=== PATIENT | male | born 1975 | race Caucasian/White ===

== ENCOUNTER 2023-04-09 14:32 | Outpatient (CLI) | payer OTHER, MEDICAID, SELFPAY ==
--- NOTE | 2023-04-09 | US_ITS ---
WS: [id number] ULTRASOUND SOFT TISSUES LEFT groin HISTORY: Left Inguinal Hernia COMPARISON: None available. TECHNIQUE: 2-D and color Doppler imaging is submitted. Ultrasound is directed to the LEFT groin. There is a small lymph node which is normal size. Normal fa tty hilum. No herniation of bowel loops. Normal appearance of the soft tissues. US/US pelvic limited [id number] IMPRESSION: Negative ultrasound LEFT groin.
== END 2023-04-09 14:33 | disposition home or self-care (01) ==
LOC: RAD 14:37
PROVIDERS: PCP Family Medicine; Visit Provider Family Medicine
DX: R10.32 Left lower quadrant pain (principal)
CPT/HCPCS: 76857

== ENCOUNTER 2023-04-26 15:45 | Outpatient (CLI) | payer OTHER, MEDICAID, SELFPAY ==
--- NOTE | 2023-04-26 16:08 | CTR_ITS ---
PROCEDURE INFORMATION: Exam: CT Pelvis Without Contrast Exam date and time: 04/26/2023 4:09 PM Age: 47 years old Clinical indication: Other: Groin mass, left; Patient HX: Left side groin red/infection x 2.5 wks TECHNIQUE: Imaging protocol: Computed tomography of the pelvis without contrast. Radiation optimization: All CT scans at this facility use at least one of these dose optimization techniques: automated exposure control; mA and/or kV adjustment per patient size (includes targeted exams where dose is matched to clinical indication); or iterative reconstruction. REPORTING DATA: Count of CT and Cardiac NM exams in prior 12 months: This patient has received 0 known CTs and 0 known cardiac nuclear medicine studies in the 12 months prior to the current study. COMPARISON: pelvic limited [id number] 04/09/2023 3:35 PM RADIATION DOSE METRICS: Total DLP (mGy-cm): 243.04 FINDINGS: Bowel: Sigmoid colonic diverticula are present without evidence of diverticulitis. Appendix: The vermiform appendix is normal. Intraperitoneal space: Unremarkable. No free air. No significant fluid collection. Vasculature: Left pelvic calcified phlebolith. Possible left flowers mortis vessel (series 4, image [id number]). Lymph nodes: Small symmetric bilateral inguinal lymph nodes lymph nodes. These nodes do not meet size criteria for significance. Urinary bladder: Normal. No mass. Reproductive: Normal as visualized. Bones/joints: Bilateral L5 spondylolysis. Soft tissues: A 4.2 x 1.8 x 1.3 cm left indirect inguinal hernia is present containing only intra-abdominal fat. No specific CT evidence of soft tissue infection. No ectopic soft tissue gas. No fluid collection. CT/CT pelvis wo con [id number] IMPRESSION: 1. Left inguinal hernia. 2. Bilateral L5 spondylolysis. 3. Diverticulosis.
== END 2023-04-26 15:46 | disposition home or self-care (01) ==
PROVIDERS: PCP Family Medicine; Visit Provider Family Medicine
DX: R19.09 Other intra-abdominal and pelvic swelling, mass and lump (principal); K40.90 Unilateral inguinal hernia, without obstruction or gangrene, not specified as recurrent; M47.816 Spondylosis without myelopathy or radiculopathy, lumbar region; K57.30 Diverticulosis of large intestine without perforation or abscess without bleeding
CPT/HCPCS: 72192

== ENCOUNTER 2023-05-02 23:35 | Emergency (ER) | payer OTHER, MEDICAID, SELFPAY ==
[2023-05-02 23:43] VITALS: BP 118/79; PULSE 66; RESP 18; TEMP 36.7; O2SAT 99; BMI 24.3
[2023-05-03 00:33] LABS: Basophils # 0.1 10^3/uL (0.0-0.1); Basophils % 0.6 %; Eosinophils # 0.4 10^3/uL (0.0-0.8); Eosinophils % 3.6 %; Hematocrit 42.5 % (42.0-52.0); Hemoglobin 14.1 g/dL (11.7-16.6); Lymphocytes # 3.3 10^3/uL (0.8-4.8); Lymphocytes % 34.1 %; Mean Corpuscular HGB Conc 33.2 g/dL (30.0-36.0); Mean Corpuscular Hemoglobin 29.7 pg (28.0-34.0); Mean Corpuscular Volume 89.7 fl (80-94); Mean Platelet Volume 11.7 fL (7.4-10.4); Monocytes # 0.7 10^3/uL (0.2-0.9); Neutrophils # 5.32 10^3/uL (1.8-7.7); Neutrophils % 54.4 %; Nucleated Red Blood Cells % 0 %; Platelet Count 197 10^3/cmm (130-400); Red Blood Count 4.74 10^6/uL (4.1-5.3); Red Cell Distribution Width 12.8 % (12.1-15.1); White Blood Count 9.8 10^3/uL (4.0-10.0)
[2023-05-03 00:44] LABS: Alanine Aminotransferase 13 U/L (0-41); Albumin Level 4.3 g/dL (3.5-5.2); Alkaline Phosphatase 76 U/L (40-130); Aspartate Amino Transferase 13 U/L (0-40); Blood Urea Nitrogen 13 mg/dL (6-20); Calcium 9.3 mg/dL (8.5-10.5); Carbon Dioxide 25 mmol/L (22-29); Chloride 101 mmol/L (98-107); Globulin 2.2 g/dL (1.3-4.6); Glomerular Filtration Rate 80.1 mL/min (90-130); Glucose 115 mg/dL (65-115); Lipase 24 U/L (13-60); Osmolality Calculated 285 mOsm/kg (285-295); Sodium 137 mmol/L (136-145); Total Bilirubin 0.3 mg/dL (0.15-1.2); Total Protein 6.5 g/dL (6.6-8.7)
[2023-05-03 02:18] VITALS: BP 103/75; PULSE 61; RESP 22; O2SAT 92
--- NOTE | 2023-05-03 02:38 | CTR_ITS ---
PROCEDURE INFORMATION: Exam: CT Abdomen And Pelvis With Contrast Exam date and time: 05/03/2023 3:29 AM Age: 47 years old Clinical indication: Abdominal pain; Localized; Left lower quadrant (llq); Patient HX: C/O llq/groin pain. History of left inguinal hernia. ; Additional info: Left lq pain/inguinal pain HX of inguinal hernia TECHNIQUE: Imaging protocol: Computed tomography of the abdomen and pelvis with contrast. Radiation optimization: All CT scans at this facility use at least one of these dose optimization techniques: automated exposure control; mA and/or kV adjustment per patient size (includes targeted exams where dose is matched to clinical indication); or iterative reconstruction. Contrast material: OMNI 350; Contrast volume: 100 ml; Contrast route: INTRAVENOUS (IV); REPORTING DATA: Count of CT and Cardiac NM exams in prior 12 months: This patient has received [address] and 0 known cardiac nuclear medicine studies in the 12 months prior to the current study. COMPARISON: CT pelvis wo con [id number] 04/26/2023 4:09 PM RADIATION DOSE METRICS: Total DLP (mGy-cm): 625.25 FINDINGS: Lungs: Mild probable atelectasis in the posterior lower lungs. Several small calcified granulomas in the lower lungs. No pleural fluid. Liver: Couple of small low attenuation areas in the right lobe of the liver, larger about 10-11 mm. These are nonspecific, but are statistically most likely small cysts or cavernous hemangiomas. If there is clinical concern for other liver mass, MRI could be more specific. Gallbladder and bile ducts: Several calcified gallstones within the gallbladder. No other definite gallbladder abnormality by CT. No biliary tree dilation. Pancreas: Unremarkable. Spleen: Unremarkable. Adrenal glands: Unremarkable. Kidneys and ureters: No hydronephrosis of either kidney. No visible ureteral calculus. No perinephric fluid. 20 mm simple appearing cyst in the upper left kidney. 10 mm simple appearing cyst in the lower left kidney. Stomach and bowel: Several small bowel loops are fluid-filled, but not abnormally distended. The overall appearance is not suggestive of significant small bowel obstruction at this time. This appearance could be secondary to some form of gastroenteritis. Please correlate clinically. If is clinical suspicion for small bowel obstruction, follow-up may be helpful to exclude progression. No significant bowel distention. There are no CT findings to strongly suggest diverticulitis or colitis. Negative CT does not entirely exclude colitis, so follow-up may be helpful, as clinically directed. Appendix: The appendix is visualized and appears normal. Intraperitoneal space: No free intraperitoneal air, or ascites. Vasculature: No evidence for abdominal aortic aneurysm. Lymph nodes: Several borderline prominent inguinal lymph nodes bilaterally, slightly more prominent on the left, not significantly changed. No significant surrounding inflammatory changes or fluid. No associated soft tissue gas. Urinary bladder: No visible calculus in the urinary bladder. Possibly some mild diffuse urinary bladder wall thickening. However, evaluation is somewhat limited, as the bladder is not well distended. While nonspecific, this could indicate evidence for cystitis. Please correlate clinically. Reproductive: Essentially unremarkable for age. Bones/joints: There is bilateral L5 spondylolysis, no significant/obvious spondylolisthesis. Mild bulging disc at L5-S1, unchanged. Soft tissues: Small left inguinal hernia, containing only fat, not significantly changed. CT/CT abdomen pelvis w con* [id number] IMPRESSION: 1. Several borderline prominent inguinal lymph nodes bilaterally, see additional details above. No significant surrounding inflammatory changes or fluid. 2. Small left inguinal hernia, containing only fat, not significantly changed. 3. No findings to strongly suggest diverticulitis or colitis. 4. Several small bowel loops are fluid-filled, but not abnormally distended, see above discussion. This appearance could be secondary to some form of gastroenteritis. 5. Possible mild urinary bladder wall thickening, see above. 6. Cholelithiasis, see additional details above. 7. Normal appendix. 8. Other findings discussed above. COMMENTS: Consistent with the [employer]'s Incidental Findings Committee white paper (J Am Armando Radiol 2018): Any incidental renal lesion less than 1 cm or classified as too small to characterize, or any incidental cystic renal lesion characterized as simple-appearing, is likely benign. No follow-up imaging is recommended for these lesions per consensus recommendations based on imaging criteria.
[2023-05-03] MEDS: ondansetron 2 mg/ML SDV 2 mL 4 MG IVP (03:03)
[2023-05-03] MEDS: ketorolac 30 mg/mL INJ 15 MG IVP ×2 (03:05→05:00)
[2023-05-03] MEDS: HYDROmorphone 1 mg/mL INJ 1 mL IVP (03:06)
[2023-05-03] MEDS: sodium chloride 0.9% 1,000 ML 999 ML IV (03:17)
[2023-05-03] MEDS: iohexol 350 mg/mL 500 mL Btl (per mL) IV (03:30)
[2023-05-03 04:40] LABS: Add Urine Microscopic? YES; Bilirubin Urine Neg (Negative); Blood Urine Neg (Negative); Glucose Urine UA Norm (Normal); Ketones Urine Negative (Negative); Leukocyte Esterase Urine Trace (Negative); Nitrate Urine Negative (Negative); Protein Urine Neg (Negative); Specific Gravity, Urine 1.015 (1.005-1.030); Urine Appearance Clear (CLEAR); Urine Color Yellow (Yellow); Urobilinogen Urine Norm (Negative); pH Urine 5 (5-7)
[2023-05-03 04:41] LABS: Bacteria Urine TRACE /hpf; Squamous Epithelial Cell Urine 0-4 /hpf (0-5); WBC Urine 0-4 /hpf (0-5)
[2023-05-03 05:05] VITALS: BP 115/63; PULSE 65; RESP 18; O2SAT 96
--- NOTE | 2023-05-04 01:16 | W.ED.ABDPA2 ---
HPI - Abdominal Pain General: Chief Complaint: Abdominal Pain Stated Complaint: hernia Time Seen by Provider: 05/03/23 02:29 Source: patient and family History of Present Illness: 47 year old male with a history of a left inguinal hernia. He presents with left lower quadrant and left groin pain for the past several hours. No fever. He is nauseated. No vomiting. No blood in the stool. No diarrhea. MD elicited complaint: abdominal pain Location: LLQ, Pelvis and Groin Migration to: no migration Exacerbating factors: movement Relieving factors: nothing Associated Symptoms: Reports nausea; Denies diarrhea, dysuria, fever(s), hematuria, melena and vomiting Review of Systems Const: Denies: fever(s) ENMT: Denies: throat pain or ear discharge Card: Denies: chest pain Resp: Denies: dyspnea GI: Reports: nausea; Denies: vomiting, diarrhea or melena : Denies: dysuria or hematuria Course Vital Signs: Vital signs: Vital Signs Temperature 98.1 F 05/02/23 23:43 Pulse Rate 65 05/03/23 05:05 Respiratory Rate 18 05/03/23 05:05 Blood Pressure 115/63 05/03/23 05:05 Pulse Oximetry 96 05/03/23 05:05 Oxygen Delivery Me thod Room Air 05/02/23 23:43 MDM - Abdominal Pain Medical Decision Making CBC is normal period BMP is normal. liver enzymes are not remarkable. Vitals are normal. CT scan is repeated, which shows prominent inguinal lymph nodes bilaterally, and a small left inguinal hernia containing only fat not significantly changed from prior. He'll be prescribed pain medication and anti emetics, and he'll follow up as an outpatient with surgery. to return for worsening symptoms. Lab Data 05/02/23 00:01 05/02/23 00:01 Labs/Radiology: Radiology Impressions Abdomen/Pelvis CT 05/03/23 02:38 IMPRESSION: 1. Several borderline prominent inguinal lymph nodes bilaterally, see additional details above. No significant surrounding inflammatory changes or fluid. 2. Small left inguinal hernia, containing only fat, not significantly changed. 3. No findings to strongly suggest diverticulitis or colitis. 4. Several small bowel loops are fluid-filled, but not abnormally distended, see above discussion. This appearance could be secondary to some form of gastroenteritis. 5. Possible mild urinary bladder wall thickening, see above. 6. Cholelithiasis, see additional details above. 7. Normal appendix. 8. Other findings discussed above. COMMENTS: Consistent with the [employer]'s Incidental Findings Committee white paper (J Am Armando Radiol 2018): Any incidental renal lesion less than 1 cm or classified as too small to characterize, or any incidental cystic renal lesion characterized as simple-appearing, is likely benign. No follow-up imaging is recommended for these lesions per consensus recommendations based on imaging criteria. Laboratory Results WBC 9.8 10^3/uL (4.0-10.0) 05/02/23 00:01 RBC 4.74 10^6/uL (4.1-5.3) 05/02/23 00:01 Hgb 14.1 g/dL (11.7-16.6) 05/02/23 00:01 Hct 42.5 % (42.0-52.0) 05/02/23 00:01 MCV 89.7 fl (80-94) 05/02/23 00:01 MCH 29.7 pg (28.0-34.0) 05/02/23 00:01 MCHC 33.2 g/dL (30.0-36.0) 05/02/23 00:01 RDW 12.8 % (12.1-15.1) 05/02/23 00:01 Plt Count 197 10^3/cmm (130-400) 05/02/23 00:01 MPV 11.7 fL (7.4-10.4) H 05/02/23 00:01 Neut % (Auto) 54.4 % 05/02/23 00:01 Lymph % (Auto) 34.1 % 05/02/23 00:01 [place] % (Auto) 7.0 % 05/02/23 00:01 Eos % (Auto) 3.6 % 05/02/23 00:01 Baso % (Auto) 0.6 % 05/02/23 00:01 Neut # (Auto) 5.32 10^3/uL (1.8-7.7) 05/02/23 00:01 Lymph # (Auto) 3.3 10^3/uL (0.8-4.8) 05/02/23 00:01 [place] # (Auto) 0.7 10^3/uL (0.2-0.9) 05/02/23 00:01 Eos # (Auto) 0.4 10^3/uL (0.0-0.8) 05/02/23 00:01 Baso # (Auto) 0.1 10^3/uL (0.0-0.1) 05/02/23 00:01 Nucleated RBC % (auto) 0 % 05/02/23 00: Nucleated RBCs # 0.0 /100WBC 05/02/23 00:01 Sodium 137 mmol/L (136-145) 05/02/23 00:01 Potassium 4.0 mmol/L (3.5-5.1) 05/02/23 00:01 Chloride 101 mmol/L (98-107) 05/02/23 00:01 Carbon Dioxide 25 mmol/L (22-29) 05/02/23 00:01 Anion Gap 15.0 (5-19) 05/02/23 00:01 BUN 13 mg/dL (6-20) 05/02/23 00:01 Creatinine 1.0 mg/dL (0.7-1.2) 05/02/23 00:01 GFR Calculation 80.1 mL/min (90-130) L 05/02/23 00:01 Glucose 115 mg/dL (65-115) 05/02/23 00:01 Calculated Osmolality 285 mOsm/kg (285-295) 05/02/23 00:01 Calcium 9.3 mg/dL (8.5-10.5) 05/02/23 00:01 Total Bilirubin 0.3 mg/dL (0.15-1.2) 05/02/23 00:01 AST 13 U/L (0-40) 05/02/23 00:01 ALT 13 U/L (0-41) 05/02/23 00:01 Alkaline Phosphatase 76 U/L (40-130) 05/02/23 00:01 Total Protein 6.5 g/dL (6.6-8.7) L 05/02/23 00:01 Albumin 4.3 g/dL (3.5-5.2) 05/02/23 00:01 Globulin 2.2 g/dL (1.3-4.6) 05/02/23 00:01 Lipase 24 U/L (13-60) 05/02/23 00:01 Urine Color Yellow (Yellow) 05/03/23 02:45 Urine Appearance Clear (CLEAR) 05/03/23 02:45 Urine pH 5 (5-7) 05/03/23 02:45 Ur Specific [place] 1.015 (1.005-1.030) 05/03/23 02:45 Urine Protein Neg (Negative) 05/03/23 02:45 Urine Glucose (UA) Norm (Normal) 05/03/23 02:45 Urine Ketones Negative (Negative) 05/03/23 02:45 Urine Blood Neg (Negative) 05/03/23 02:45 Urine Nitrate Negative (Negative) 05/03/23 02:45 Urine Bilirubin Neg (Negative) 05/03/23 02:45 Urine Urobilinogen Norm mg/dL (Negative) 05/03/23 02:45 Ur Leukocyte Esterase Trace (Negative) H 05/03/23 02:45 Urine RBC None /hpf (0-2) 05/03/23 02:45 Urine WBC 0-4 /hpf (0-5) H 05/03/23 02:45 Ur Squamous Epith Cells 0-4 /hpf (0-5) H 05/03/23 02:45 Amorphous Sediment Not Reportable 05/03/23 02:45 Urine Bacteria Trace /hpf (NONE) 05/03/23 02:45 Discharge Plan Discharge Patient Disposition: Home Clinical Impression: Abdominal pain, Inguinal hernia Condition: Stable Prescriptions: New hydrocodone-acetaminophen 5-325 mg tablet 1 tab PO Q8H PRN (Reason: pain) Qty: 7 0RF ondansetron 4 mg film 4 mg PO DAILY PRN (Reason: nausea and vomiting) Qty: 10 0RF ketorolac 10 mg tablet 10 mg PO TID PRN (Reason: pain) Qty: 10 0RF Discharge Orders: Discharge ED (Routine); Ordered 05/03/23 Ordered By: Oleg Major Referrals: Gildardo Pugh DO [Physician] - 4-7 days Larry Benjamin MD [Primary Care Provider] - Patient Instructions: Inguinal Hernia (ED), Abdominal Pain (ED), Opioid Safety, Pain Management Activity Restrictions/Additional Instructions: Call your doctor later this morning for a follow-up appointment. Surgeries number was also listed, for a follow-up with them as well. Alternate pain medication for significant pain. Ice to the area can help as well. Return for fever greater than 100, vomiting liquids or medications, other concerning symptoms. Stand Alone Forms: Work/School Release Coding Level of Care Code ED [employer] for Paul Alvarez
== END 2023-05-03 05:03 | disposition home or self-care (01) ==
PROVIDERS: Emergency Provider Emergency Medicine; PCP Family Medicine
DX: K40.90 Unilateral inguinal hernia, without obstruction or gangrene, not specified as recurrent (principal)
CPT/HCPCS: 36415; 74177; 80053; 81001; 83690; 85025; 96361; 96374; 96375; 96376; 99285; J1170; J1885; J2405; J7030; Q9967

== ENCOUNTER 2023-05-07 13:45 | Emergency (ER) | payer OTHER, SELFPAY ==
[2023-05-07 13:49] VITALS: BP 103/67; PULSE 71; RESP 16; TEMP 36.7; O2SAT 98; BMI 24.2
[2023-05-07 14:08] LABS: Basophils # 0.1 10^3/uL (0.0-0.1); Basophils % 0.7 %; Eosinophils # 0.2 10^3/uL (0.0-0.8); Hematocrit 45.9 % (42.0-52.0); Hemoglobin 15.2 g/dL (11.7-16.6); Lymphocytes # 2.2 10^3/uL (0.8-4.8); Lymphocytes % 29.7 %; Mean Corpuscular HGB Conc 33.1 g/dL (30.0-36.0); Mean Corpuscular Hemoglobin 29.4 pg (28.0-34.0); Mean Corpuscular Volume 88.8 fl (80-94); Monocytes # 0.5 10^3/uL (0.2-0.9); Monocytes % 6.6 %; Neutrophils # 4.46 10^3/uL (1.8-7.7); Neutrophils % 59.9 %; Nucleated Red Blood Cells % 0 %; Platelet Count 180 10^3/cmm (130-400); Red Blood Count 5.17 10^6/uL (4.1-5.3); Red Cell Distribution Width 12.9 % (12.1-15.1); White Blood Count 7.4 10^3/uL (4.0-10.0)
[2023-05-07 14:28] LABS: Alanine Aminotransferase 12 U/L (0-41); Albumin Level 4.4 g/dL (3.5-5.2); Alkaline Phosphatase 77 U/L (40-130); Anion Gap 16.3 (5-19); Aspartate Amino Transferase 12 U/L (0-40); Blood Urea Nitrogen 13 mg/dL (6-20); Calcium 9.1 mg/dL (8.5-10.5); Carbon Dioxide 23 mmol/L (22-29); Chloride 100 mmol/L (98-107); Globulin 2.3 g/dL (1.3-4.6); Glomerular Filtration Rate 80.1 mL/min (90-130); Glucose 91 mg/dL (65-115); Lipase 19 U/L (13-60); Osmolality Calculated 280 mOsm/kg (285-295); Potassium 4.3 mmol/L (3.5-5.1); Sodium 135 mmol/L (136-145); Total Bilirubin 0.3 mg/dL (0.15-1.2); Total Protein 6.7 g/dL (6.6-8.7)
--- NOTE | 2023-05-07 15:13 | CTR_ITS ---
PROCEDURE INFORMATION: Exam: CT Abdomen And Pelvis With Contrast Exam date and time: 05/07/2023 3:35 PM Age: 47 years old Clinical indication: Abdominal pain; Localized; Left lower quadrant (llq); Additional info: Abdominal pain llq, inguinal hernia TECHNIQUE: Imaging protocol: Computed tomography of the abdomen and pelvis with contrast. Axial, coronal and sagittal reformatted images were created and reviewed. Radiation optimization: All CT scans at this facility use at least one of these dose optimization techniques: automated exposure control; mA and/or kV adjustment per patient size (includes targeted exams where dose is matched to clinical indication); or iterative reconstruction. Contrast material: OMNI 350; Contrast volume: 100 ml; Contrast route: INTRAVENOUS (IV); REPORTING DATA: Count of CT and Cardiac NM exams in prior 12 months: This patient has received 2 known CTs and 0 known cardiac nuclear medicine studies in the 12 months prior to the current study. COMPARISON: CT abdomen pelvis w con* [id number] 05/03/2023 3:29 AM RADIATION DOSE METRICS: Total DLP (mGy-cm): 630.33 FINDINGS: Lungs: Dependent linear stranding and groundglass, likely due to atelectasis. Bibasilar calcified granulomata. Pleural spaces: Small pleural effusions. Liver: 1.1 cm cyst in the right hepatic lobe (no follow-up is indicated based on the imaging appearance). Indeterminate low-density lesions in the right hepatic lobe, measuring up to 9 mm, similar to prior. Gallbladder and bile ducts: Cholelithiasis. Pancreas: Unremarkable. Spleen: Unremarkable. Adrenal glands: Normal. No mass. Kidneys and ureters: Left renal cysts, measuring up to 2.2 cm (no follow-up is indicated based on the imaging appearance). No radiodense calculi. No hydronephrosis. Stomach and bowel: Scattered colonic diverticula without evidence of diverticulitis. No obstruction. No bowel wall thickening. No pneumatosis. Appendix: Normal. Intraperitoneal space: No free fluid. No organized fluid collection. No free air. Vasculature: Minimal atherosclerotic disease. No aneurysm or dissection. Lymph nodes: Small mesenteric lymph nodes, nonspecific in appearance. No pathologically enlarged lymph nodes. Urinary bladder: Unremarkable as visualized. Reproductive: Unremarkable. Bones/joints: No acute osseous abnormality. Mild degenerative changes. Bilateral L5 pars defects. Soft tissues: Small, fat containing left inguinal hernia. CT/CT abdomen pelvis w con* [id number]: 1[address] No CT evidence of acute intra-abdominal or pelvic pathology. 2. Additional findings, as above. COMMENTS: Consistent with the [employer]'s Incidental Findings Committee white paper (J Am Armando Radiol 2018): Any incidental renal lesion less than 1 cm or classified as too small to characterize, or any incidental cystic renal lesion characterized as simple-appearing, is likely benign. No follow-up imaging is recommended for these lesions per consensus recommendations based on imaging criteria.
--- NOTE | 2023-05-07 15:15 | W.ED.ABDPA2 ---
HPI - Abdominal Pain General: Chief Complaint: Abdominal Pain Stated Complaint: abd pain Time Seen by Provider: 05/07/23 13:59 History of Present Illness: Patient is a 47-year-old male who comes to the ED with abdominal pain. Patient was seen here in the ED for same complaint approximately 3 days ago on May 04. Patient states he was diagnosed with a left inguinal hernia and has an appointment with general surgery at the end of April. Patient states that since he was discharged from the ED 3 days ago his abdominal pain is gotten worse. He is having worsening left lower quadrant abdominal pain that he rates a 9 out of 10. Pain is also in his left groin region where inguinal hernia is located. He endorses some pain in left lower quadrant of abdomen and left groin when trying to urinate. Associated Symptoms: Reports dysuria; Denies chills, constipation, diarrhea, fever(s), hematochezia, hematuria, nausea and vomiting Review of Systems Const: Denies: fever(s), chills or fatigue Eyes: Denies: change in vision or eye discomfort ENMT: Denies: throat pain, odynophagia, nasal discharge or nasal congestion Card: Denies: chest pain, palpitations, edema, swelling of feet/ankles, dyspnea on exertion or orthopnea Resp: Denies: dyspnea, productive cough or non-productive cough GI: Reports: abdominal pain; Denies: nausea, vomiting, diarrhea, constipation or hematochezia : Reports: dysuria; Denies: flank pain, difficulty urinating or hematuria Musc: Denies: neck pain, back pain or extremity swelling Skin/Breast: Denies: rash or new lesions Neuro: Denies: headache(s), numbness in extremities or weakness in extremities PFS ED PFSH: Medical History (Updated 05/07/23 @ 16:26 by BORA Christian) No pertinent family history Surgical History (Updated 05/07/23 @ 16:26 by BORA Christian) No pertinent past surgical history Physical Exam Const: COMMON NORMALS: no acute distress, patient oriented x3 and alert HENMT: COMMON NORMALS: normocephalic HEAD & SCALP: normocephalic MOUTH: Normal oral and palatal mucosa present THROAT: posterior oropharynx normal and uvula midline Neck/C-Spine: COMMON NORMALS: supple GENERAL: Yes normal visual inspection Resp: COMMON NORMALS: normal respiratory effort, No retractions, No use of accessory muscles and clear to auscultation bilaterally AUSCULTATION: clear to auscultation bilaterally Cardio: COMMON NORMALS: regular rate, regular rhythm, S1 normal heart sound present, S2 normal heart sound present, No gallops present (Cardio), No clicks present (Cardio), No murmurs present (Cardio) and Peripheral pulses 2+ throughout RATE: regular rate RHYTHM: regular rhythm HEART SOUNDS: S1 normal heart sound present and S2 normal heart sound present PERIPHERAL PULSES: Peripheral pulses 2+ throughout GI: COMMON NORMALS: Normal to inspection, nondistended, normoactive bowel sounds present, Soft to palpation and no masses PALPATION: Yes Soft to palpation, Yes Tenderness to palpation present (GI) Details: LLQ and Yes Hernia present (Very small left inguinal hernia) : COMMON NORMALS: Yes no CVA tenderness BLADDER/KIDNEY EXAM: Yes no CVA tenderness Back/Pelvis: COMMON NORMALS: no CVA tenderness Extremity: COMMON NORMALS: normal to inspection Neuro: COMMON NORMALS: patient oriented x3 SENSORIUM/ORIENTATION: Yes alert GAIT: Yes Normal gait present Skin: GENERAL SKIN EXAM: dry skin Course Vital Signs: Vital signs: Vital Signs Temperature 98.1 F 05/07/23 13:49 Pulse Rate 71 05/07/23 13:49 Respiratory Rate 16 05/07/23 15:18 Blood Pressure 103/67 05/07/23 13:49 Pulse Oximetry 97 05/07/23 15:18 Oxygen Delivery Me thod Room Air 05/07/23 13:49 MDM - Abdominal Pain Medical Decision Making Patient is a 47-year-old male who comes to the ED with abdominal pain. Patient was seen here in the ED for same complaint approximately 3 days ago on May 04. Patient states he was diagnosed with a left inguinal hernia and has an appointment with general surgery at the end of April. Patient states that since he was discharged from the ED 3 days ago his abdominal pain is gotten worse. He is having worsening left lower quadrant abdominal pain that he rates a 9 out of 10. Pain is also in his left groin region where inguinal hernia is located. He endorses some pain in left lower quadrant of abdomen and left groin when trying to urinate. Vitals are stable. Labs are all unremarkable. UA was unremarkable. CT of abdomen pelvis shows no acute intra-abdominal or pelvic findings. It did note a very small fat-containing left inguinal hernia. Patient was given IV fluids, morphine and Toradol here in the ED. He was stable for discharge home and told to follow-up with general surgeon at scheduled appointment. He was sent home with a prescription for hydrocodone to help with pain. Return to ED precautions given. Patient understood and agreed with plan. Lab Data I reviewed the patient's lab results. 05/07/23 14:03 05/07/23 14:03 Labs/Radiology: Radiology Impressions Abdomen/Pelvis CT 05/07/23 15:[address]: 1[address] No [address] evidence of acute intra-abdominal or pelvic pathology. 2. Additional findings, as above. COMMENTS: Consistent with the [employer]'s Incidental Findings Committee white paper (J Am Armando Radiol 2018): Any incidental renal lesion less than 1 cm or classified as too small to characterize, or any incidental cystic renal lesion characterized as simple-appearing, is likely benign. No follow-up imaging is recommended for these lesions per consensus recommendations based on imaging criteria. Laboratory Results WBC 7.4 10^3/uL (4.0-10.0) 05/07/23 14:03 RBC 5.17 10^6/uL (4.1-5.3) 05/07/23 14:03 Hgb 15.2 g/dL (11.7-16.6) 05/07/23 14:03 Hct 45.9 % (42.0-52.0) 05/07/23 14:03 MCV 88.8 fl (80-94) 05/07/23 14:03 MCH 29.4 pg (28.0-34.0) 05/07/23 14:03 MCHC 33.1 g/dL (30.0-36.0) 05/07/23 14:03 RDW 12.9 % (12.1-15.1) 05/07/23 14:03 Plt Count 180 10^3/cmm (130-400) 05/07/23 14:03 MPV 11.0 fL (7.4-10.4) H 05/07/23 14:03 Neut % (Auto) 59.9 % 05/07/23 14:03 Lymph % (Auto) 29.7 % 05/07/23 14:03 [place] % (Auto) 6.6 % 05/07/23 14:03 Eos % (Auto) 3.0 % 05/07/23 14:03 Baso % (Auto) 0.7 % 05/07/23 14:03 Neut # (Auto) 4.46 10^3/uL (1.8-7.7) 05/07/23 14:03 Lymph # (Auto) 2.2 10^3/uL (0.8-4.8) 05/07/23 14:03 [place] # (Auto) 0.5 10^3/uL (0.2-0.9) 05/07/23 14:03 Eos # (Auto) 0.2 10^3/uL (0.0-0.8) 05/07/23 14:03 Baso # (Auto) 0.1 10^3/uL (0.0-0.1) 05/07/23 14:03 Nucleated RBC % (auto) 0 % 05/07/23 14:03 Nucleated RBCs # 0.0 /100WBC 05/07/23 14:03 Sodium 135 mmol/L (136-145) L 05/07/23 14:03 Potassium 4.3 mmol/L (3.5-5.1) 05/07/23 14:03 Chloride 100 mmol/L (98-107) 05/07/23 14:03 Carbon Dioxide 23 mmol/L (22-29) 05/07/23 14:03 Anion Gap 16.3 (5-19) 05/07/23 14:03 BUN 13 mg/dL (6-20) 05/07/23 14:03 Creatinine 1.0 mg/dL (0.7-1.2) 05/07/23 14:03 GFR Calculation 80.1 mL/min (90-130) L 05/07/23 14:03 Glucose 91 mg/dL (65-115) 05/07/23 14:03 Calculated Osmolality 280 mOsm/kg (285-295) L 05/07/23 14:03 Calcium 9.1 mg/dL (8.5-10.5) 05/07/23 14:03 Total Bilirubin 0.3 mg/dL (0.15-1.2) 05/07/23 14:03 AST 12 U/L (0-40) 05/07/23 14:03 ALT 12 U/L (0-41) 05/07/23 14:03 Alkaline Phosphatase 77 U/L (40-130) 05/07/23 14:03 Total Protein 6.7 g/dL (6.6-8.7) 05/07/23 14:03 Albumin 4.4 g/dL (3.5-5.2) 05/07/23 14:03 Globulin 2.3 g/dL (1.3-4.6) 05/07/23 14:03 Lipase 19 U/L (13-60) 05/07/23 14:03 Urine Color Yellow (Yellow) 05/07/23 15:15 Urine Appearance Clear (CLEAR) 05/07/23 15:15 Urine pH 5 (5-7) 05/07/23 15:15 Ur Specific [place] 1.020 (1.005-1.030) 05/07/23 15:15 Urine Protein Neg (Negative) 05/07/23 15:15 Urine Glucose (UA) Norm (Normal) 05/07/23 15:15 Urine Ketones Negative (Negative) 05/07/23 15:15 Urine Blood Neg (Negative) 05/07/23 15:15 Urine Nitrate Negative (Negative) 05/07/23 15:15 Urine Bilirubin Neg (Negative) 05/07/23 15:15 Urine Urobilinogen Norm mg/dL (Negative) 05/07/23 15:15 Ur Leukocyte Esterase Negative (Negative) 05/07/23 15:15 Discharge Plan Discharge Patient Disposition: Home Clinical Impression: Abdominal pain Qualifiers: Abdominal location: left lower quadrant Qualified Code(s): R10.32 - Left lower quadrant pain Inguinal hernia Qualifiers: Obstruction and gangrene presence: without obstruction or gangrene Laterality: unilateral Recurrence: not specified as recurrent Qualified Code(s): K40.90 - Unilateral inguinal hernia, without obstruction or gangrene, not specified as recurrent Condition: Stable Prescriptions: No Action hydrocodone-acetaminophen 5-325 mg tablet 1 tab PO Q8H PRN (Reason: pain) Qty: 7 0RF ketorolac 10 mg tablet 10 mg PO TID PRN (Reason: pain) Qty: 10 0RF Rx Instructions: not started taking yet waiting on pa per pts clindamycin HCl 300 mg capsule 300 mg PO TID Rx Instructions: for 7 days (rx filled 04/29/23) azelastine 137 mcg (0.1 %) aerosol,spray 2 spray INTRANASAL BID PRN (Reason: Allergy Symptoms) ondansetron 4 mg tablet,disintegrating 4 mg PO DAILY PRN (Reason: Nausea And Vomiting) levocetirizine 5 mg tablet 5 mg PO DAILY PRN (Reason: Allergy Symptoms) Adult Multivitamin Gummies 200 mcg Tablet,Chewable 1 tab PO DAILY Discharge Orders: Discharge ED (Routine); Ordered 05/07/23 Ordered By: Jovan Myles Referrals: Larry Benjamin MD [Primary Care Provider] - Discharge Diet: Regular Discharge Activity: Increase activity as tolerated Patient Instructions: Abdominal Pain (ED), Opioid Safety Activity Restrictions/Additional Instructions: Follow-up with general surgeon at your scheduled appointment. Take medications as prescribed. Return to the ER or your medical provider if condition worsens. Please read and understand discharge instructions. Thank you for choosing [facility] for your healthcare needs today. Please realize this is an emergency room and that we are providing you with a medical screening exam and this may not be complete and all inclusive of all the testing and or work up that you may need to determine your ailment or severity of your illness. It is very important that you follow up as instructed or that you return to the Emergency Department should you have concerns or if your condition changes or worsens in any way. Coding Level of Care Code ED [place] Worker for Paul Alvarez
[2023-05-07 15:18] VITALS: RESP 16; O2SAT 97
[2023-05-07] MEDS: morphine 4 mg/mL SDV 1 mL IVP (15:18)
[2023-05-07] MEDS: ondansetron 2 mg/ML SDV 2 mL 4 MG IVP (15:18)
[2023-05-07 15:28] LABS: Add Urine Microscopic? NO; Charge for UA Resulting for Rev
[2023-05-07] MEDS: iohexol 350 mg/mL 500 mL Btl (per mL) IV (15:32)
--- NOTE | 2023-05-07 15:36 | PC.PHAR ---
pt and pts verified pts medications-pts states the pt hasnt started taking ketorolac 10mg tid prn rx written 05/03/23 pts states they are waiting on a pa to be covered by pts insurance-pt states he is still taking his clindamycin 300mg tid filled 04/29/23 7d/s- pt states the rajendra glover work notes are made in the pharmacy comments
[2023-05-07 15:41] LABS: Bilirubin Urine Neg (Negative); Blood Urine Neg (Negative); Glucose Urine UA Norm (Normal); Ketones Urine Negative (Negative); Leukocyte Esterase Urine Negative (Negative); Nitrate Urine Negative (Negative); Protein Urine Neg (Negative); Urine Appearance Clear (CLEAR); Urine Color Yellow (Yellow); Urobilinogen Urine Norm (Negative); pH Urine 5 (5-7)
[2023-05-07] MEDS: ketorolac 30 mg/mL INJ IVP (16:40)
== END 2023-05-07 17:03 | disposition home or self-care (01) ==
PROVIDERS: Emergency Provider Physician Assistant; PCP Family Medicine
DX: K40.90 Unilateral inguinal hernia, without obstruction or gangrene, not specified as recurrent (principal)
CPT/HCPCS: 36415; 74177; 80053; 81003; 83690; 85025; 96374; 96375; 99285; J1885; J2270; J2405; Q9967

== ENCOUNTER → 2023-05-19 14:05 | Outpatient (BNVA) | payer OTHER, MEDICAID, SELFPAY | PROVIDERS: PCP Family Medicine; Visit Provider Internal Medicine | DX: Z01.810 Encounter for preprocedural cardiovascular examination (principal) | CPT/HCPCS: 93005 ==

== ENCOUNTER 2023-05-26 09:01 | Day surgery (SDC) | payer OTHER, SELFPAY ==
[2023-05-25 12:14] VITALS: BMI 24.3
[2023-05-26] VITALS (20 sets, daily range): BP systolic 90–125; BP diastolic 46–104; PULSE 60–83; RESP 14–18; TEMP 36.1–36.5; O2SAT 90–98
[2023-05-26] MEDS: sodium chloride 0.9% 1,000 ML 30 ML IV (09:26)
[2023-05-26] MEDS: scopolamine 1.5 Patch 1 PATCH TRANSDERMA (09:29)
--- NOTE | 2023-05-26 09:32 | ANES.PREANE2 ---
Pre-Anesthetic Assessment Height/Weight: Height 1.91 m Weight 88.451 kg Temp Pulse Resp BP Pulse Ox O2 Del Method 97.7 F 78 16 120/81 95 Room Air 05/26/23 09:06 05/26/23 09:06 05/26/23 09:06 05/26/23 09:06 05/26/23 09:06 05/26/23 09:15 Operation Date: 05/26/23 10:40 Proposed Procedures p 41849 OPEN LEFT INGUINAL HERNIA WITH MESH K40.90(Left) - Adeel Richardson MD Familial anesthetic complications: None Was Beta Daphnie taken within 24 hours: N/A Was Clonidine taken within 24 hours: N/A Last intake: Intake Last Liquid Date 05/25/23 Last Liquid Time 23:30 Last Solid Date 06/01/23 Last Solid Time 18:30 Social Tobacco and No alcohol Exam alert, oriented x 3, clear to auscultation bilaterally and regular rate & rhythm Airway Mallampati: Class I Dentition: other (missing) Anesthetic Plan ASA status: 1 Anesthesia: General Risk of > 500 ml blood loss (7ml/kg in children): No Medications/Allergies Home Medications Medication Instructions Recorded Confirmed Last Taken Type hydrocodone 5 mg-acetaminophen 325 1 tab PO Q8H PRN pain #7 tabs 05/03/23 05/25/23 05/25/23 Rx mg tablet ketorolac 10 mg tablet 10 mg PO TID PRN pain #10 tabs 05/03/23 05/25/23 05/12/23 Rx azelastine 137 mcg (0.1 %) nasal 2 spray intranasal BID PRN Allergy 05/07/23 05/25/23 05/25/23 History spray aerosol Symptoms levocetirizine 5 mg tablet 5 mg PO DAILY PRN Allergy Symptoms 05/07/23 05/25/23 05/25/23 History multivitamin with minerals-folic 1 tab PO DAILY 05/07/23 05/25/23 05/25/23 History acid 200 mcg chewable tablet (Adult Multivitamin Gummies) ondansetron 8 mg disintegrating 8 mg PO Q8H PRN nausea and 05/14/23 05/25/23 05/25/23 Rx tablet vomiting #20 tabs Allergies Allergy/AdvReac Type Severity Reaction Status Date / Time lorazepam [From Ativan] Allergy ADR-Agitate Verified 05/26/23 09:11 d Current Medications Generic Name Dose Route Start Last Admin Trade Name Freq PRN Reason Stop Dose Admin Sodium Chloride 1,000 mls @ 30 mls/hr 05/26/23 09:15 05/26/23 09:26 Sodium Chloride 0.9% IV 05/27/23 09:14 30 mls/hr .Q24H KLAUDIA Administration PFSH Anesthesia Medical History (Updated 05/14/23 @ 14:31 by Adeel Richardson MD) No pertinent family history Surgical History (Updated 05/07/23 @ 16:26 by BORA Christian) No pertinent past surgical history Data Anesthesia Cardiac Studies: No Data to Display
[2023-05-26] MEDS: fentaNYL 50 mcg/mL INJ 2mL IVP ×2 (10:01→12:58)
--- NOTE | 2023-05-26 10:31 | W.PM.OPSUD ---
Surgery/Procedure H&P Update DATE OF PROCEDURE: May 26, 2023 DATE H&P PERFORMED: 05/14/23 CHANGES TO PREVIOUS DOCUMENTATION: I examined patient today, no changes from last H&P. procedure still indicated for left inguinal hernia PRIMARY INDICATION FOR PROCEDURE: left inguinal hernia PLANNED PROCEDURE: Operation Date: 05/26/23 10:40 Proposed Procedures p 95111 OPEN LEFT INGUINAL HERNIA WITH MESH K40.90(Left) - Adeel Richardson MD
[2023-05-26] MEDS: ceFAZolin 2,000 MG in sodium chloride 0.9% (plus) 50 ML 100 MG IV (10:42)
[2023-05-26] MEDS: BUPivacaine 0.25% INJ 10 mL INJECTION (12:02)
[2023-05-26] MEDS: lidocaine-epi 1% 20 mL INJ 10 ML INJECTION (12:03)
[2023-05-26] MEDS: oxyCODONE-APAP 5-325 mg Tablet 1 TAB PO (13:32)
[2023-05-26] MEDS: morphine 4 mg/mL SDV 1 mL IVP (13:33)
--- NOTE | 2023-05-26 13:45 | ANE.PACU2 ---
Inpatient post-anesthesia follow up: Airway intact: Yes Vital signs: Temperature 97.5 F Pulse Rate 63 Respiratory Rate 16 Blood Pressure 125/80 Pulse Oximetry 97 Oxygen Delivery Me thod Room Air Oxygen Flow Rate 2 Fraction of Inspir ed Oxygen Hydration adequate: Yes Nausea and vomiting: No Pain level: 1 Mental status: Baseline
--- NOTE | 2023-05-26 15:40 | P.OP_ITS ---
Operative Report Date of procedure: May 26, 2023 Pre-op diagnosis: Left inguinal hernia Post-op diagnosis: Left inguinal hernia Post-op findings: There is a left inguinal hernia without indirect sac, there was a cord lipoma. There was weakness of the posterior wall of the left inguinal canal, with bulging of preperitoneal fat. Procedure done: Open left inguinal hernia repair with mesh Implants: Polypropylene mesh Specimens removed/disposition: Cord lipoma to pathology Surgeon: Adeel Richardson MD Estimated blood loss: 10cc Complications: None Findings: There is a left inguinal hernia without indirect sac, there was a cord lipoma. There was weakness of the posterior wall of the left inguinal canal, with bulging of preperitoneal fat. Left ilioinguinal and iliohypogastric nerves identified and preserved. Brief History: This a 47-year-old male who was evaluated in my clinic for a left inguinal hernia. Per patient report he felt a sudden pain after lifting heavy boxes, and he noticed bulging on the left inguinal region. Since that the moment patient has been complaining of severe pain on the left groin and physical examination was consistent with a left inguinal hernia. Patient was scheduled for an open left inguinal hernia repair with mesh after all the reason benefits of the procedure were explained as documented on my clinic visit and consent was obtained. Procedure: The patient was taken to the OR. Placed in the supine position. General esthesia was given. The left groin was prepped and draped in the usual sterile fashion. A timeout was conducted. 5 cm incision was made in the left groin, the incision was carried down to the level of the external oblique aponeurosis. I then opened the external oblique aponeurosis from the area overlying the internal ring to the external ring. The ilioinguinal nerve was identified and preserved. Careful blunt dissection was used to separate the cord from the inguinal canal. The spermatic cord was then encircled and a Rothschild drain. The floor of the inguinal canal was noted to be weakened, bulging of the preperitoneal fat was noted at this level. I then proceeded to open the cremaster muscle and carefully dissected the spermatic cord. A cord lipoma was identified, was dissected and excised. I also identified a small indirect hernia sac. The sac was dissected all the way down to the level of the internal inguinal ring, I then reduced the sac to the abdominal cavity. Subsequently I proceeded to plicate the floor of the inguinal canal by approximating the transversalis muscle to the inguinal ligament using #2-0 Prolene. A polypropylene mesh was then laid on the floor of the canal, the tails of the mesh were used to encircle the spermatic cord recreating the internal ring. The mesh was then fixed with 2-0 Prolene to the pubic tubercle and shelving edge of the inguinal ligament. I then used 2-0 Vicryl to secure the mesh to the conjoined tendon. The tail of the mesh were fixed together with #2-0 Prolene. The spermatic cord was then returned to an anatomic position, the external oblique aponeurosis was closed using #2-0 Vicryl. The wound was closed in layers using #3-0 Vicryl for Helen's and subcutaneous tissue #4-0 Monocryl for the skin. Dermabond was applied. The patient tolerated the procedure well, was extubated and transferred to the PACU in stable condition.
== END 2023-05-26 14:24 | disposition home or self-care (01) ==
PROVIDERS: PCP Family Medicine; Visit Provider Surgery
PROC: (CPT 49505; principal; 2023-05-26 10:20)
DX: K40.90 Unilateral inguinal hernia, without obstruction or gangrene, not specified as recurrent (principal); D17.6 Benign lipomatous neoplasm of spermatic cord; Z79.899 Other long term (current) drug therapy
CPT/HCPCS: 49505; 88304; C1781; J0690; J1100; J1170; J2250; J2270; J2405; J2704; J3010; J3490; J7030

== ENCOUNTER 2023-10-04 14:17 | Outpatient (CLI) | payer OTHER, SELFPAY ==
--- NOTE | 2023-10-04 14:30 | MR_ITS ---
WS: [id number] MRI PELVIS WITHOUT CONTRAST. COMPARISON: CT 05/07/2023 Multiplanar, multisequence imaging is performed without contrast. History: Constant pain in LEFT hip and groin. Hernia surgery May 2023. Symmetric appearance of the soft tissues and muscles of the pelvis. No signal abnormality within the soft tissues. No marrow edema or fracture. No adenopathy or ascites. There are no suspicious findings in the LEFT inguinal region. No fluid collection or abscess. No adenopathy. There is a very small hy drocele. No joint effusion at the hips. IMPRESSION: Negative pelvis. No adenopathy or abnormal findings at the LEFT groin.
== END 2023-10-04 14:18 | disposition home or self-care (01) ==
LOC: RAD 14:17
PROVIDERS: PCP Family Medicine; Visit Provider Surgery
DX: R10.32 Left lower quadrant pain (principal); K40.90 Unilateral inguinal hernia, without obstruction or gangrene, not specified as recurrent; M25.552 Pain in left hip; Z98.890 Other specified postprocedural states
CPT/HCPCS: 72195

== ENCOUNTER 2023-12-10 20:15 | Emergency (ER) | payer OTHER, SELFPAY ==
[2023-12-10 20:19] VITALS: BP 136/86; PULSE 100; RESP 18; TEMP 36.7; O2SAT 93
== END 2023-12-10 21:45 | disposition left against medical advice (07) ==
PROVIDERS: Emergency Provider Family Medicine; PCP Family Medicine
DX: Z53.21 Procedure and treatment not carried out due to patient leaving prior to being seen by health care provider (principal)

== ENCOUNTER 2024-01-04 12:30 | Outpatient (CLI) | payer MEDICAID, SELFPAY | END 2024-01-04 12:31 | disposition home or self-care (01) | LOC: SLEEP 01-05 09:40 | PROVIDERS: PCP Family Medicine; Visit Provider Family Medicine | DX: G47.33 Obstructive sleep apnea (adult) (pediatric) (principal) | CPT/HCPCS: G0399 ==

== ENCOUNTER 2024-08-24 20:37 | Emergency (ER) | payer MEDICAID, OTHER, SELFPAY ==
[2024-08-24 20:46] VITALS: BP 152/93; PULSE 80; RESP 16; TEMP 37; O2SAT 97; BMI 25.6
--- NOTE | 2024-08-24 21:04 | XRR_ITS ---
PROCEDURE INFORMATION: Exam: XR Left Foot Exam date and time: 08/24/2024 9:58 PM Age: 48 years old Clinical indication: Pain; Foot; Left; Additional info: Pain swelling no trauma TECHNIQUE: Imaging protocol: Radiologic exam of the left foot. Views: 3 or more views. COMPARISON: No relevant prior studies available. FINDINGS: Bones/joints: Bipartite medial and lateral hallux sesamoids. Achilles enthesophyte. Tiny inferior calcaneal spur. No ankle joint effusion Soft tissues: Normal. XR/XR foot LT min 3V* [id number] IMPRESSION: No acute fracture or dislocation.
[2024-08-24 21:15] VITALS: BP 127/84; PULSE 78; RESP 18; O2SAT 94
[2024-08-24 21:21] LABS: Basophils % 0.6 %; Eosinophils # 0.3 10^3/uL (0.0-0.8); Eosinophils % 4.6 %; Hematocrit 41.9 % (37-53); Lymphocytes # 1.7 10^3/uL (0.8-4.8); Lymphocytes % 27.4 %; Mean Corpuscular HGB Conc 33.7 g/dL (30-55); Mean Corpuscular Hemoglobin 29.9 pg (27-33); Monocytes # 0.6 10^3/uL (0.2-0.9); Monocytes % 8.7 %; Neutrophils # 3.69 10^3/uL (1.8-7.7); Neutrophils % 58.5 %; Nucleated Red Blood Cells % 0 %; Platelet Count 149 10^3/cmm (157-399); Red Blood Count 4.71 10^6/uL (3.85-5.65); White Blood Count 6.31 10^3/uL (3.29-11.43)
[2024-08-24 21:38] LABS: Alanine Aminotransferase 14 U/L (0-41); Albumin Level 4.2 g/dL (3.5-5.2); Alkaline Phosphatase 82 U/L (40-130); Anion Gap 15.5 (5-19); Aspartate Amino Transferase 16 U/L (0-40); Blood Urea Nitrogen 12 mg/dL (6-20); Calcium 8.8 mg/dL (8.5-10.5); Carbon Dioxide 22 mmol/L (22-29); Chloride 103 mmol/L (98-107); Creatinine Clr Calc Pharmacy 160.4422; Globulin 2.2 g/dL (1.3-4.6); Glomerular Filtration Rate 120.4 mL/min (90-130); Glucose 131 mg/dL (65-115); Osmolality Calculated 286 mOsm/kg (285-295); Potassium 3.5 mmol/L (3.5-5.1); Sodium 137 mmol/L (136-145); Total Bilirubin 0.2 mg/dL (0.15-1.2); Total Protein 6.4 g/dL (6.6-8.7); Uric Acid 4.4 mg/dL (3.4-7.0)
--- NOTE | 2024-08-24 21:57 | ED_ITS ---
HPI - Extremity Problem 2 General: Chief complaint: Extremity Problem,Nontraumatic Stated complaint: Left foot injury work related Time Seen by Provider: 08/24/24 21:00 History of Present Illness: Patient presents to the ER today when he noticed his left foot was swollen red and painful. Patient does not remember any trauma to it. Patient also feels like he has bruising on the top of it and by his metatarsal tarsal junction. Patient also states he feels like symptoms both in the bottom of his foot when he puts weight down. Related Data Home Medications Medication Instructions Recorded Confirmed azelastine 137 mcg (0.1 %) nasal 2 spray intranasal BID PRN Allergy 05/07/23 11/12/23 spray Symptoms levocetirizine 5 mg tablet 5 mg PO DAILY PRN Allergy Symptoms 05/07/23 11/12/23 multivitamin with minerals-folic 1 tab PO DAILY 05/07/23 11/12/23 acid 200 mcg chewable tablet (Adult Multivitamin Gummies) venlafaxine 75 mg capsule,extended mg PO 11/12/23 11/12/23 release 24 hr Previous Rx's Medication Instructions Recorded docusate sodium 100 mg capsule 100 mg PO DAILY 30 days #30 caps 05/27/23 (Colace) gabapentin 300 mg capsule 300 mg PO TID #90 caps 07/22/23 meloxicam 15 mg tablet 15 mg PO DAILY PRN pain (scale 10/14/23 score 7-10) #30 tabs meloxicam 7.5 mg tablet 7.5 mg PO .Twice daily #14 tabs 08/24/24 Allergies Allergy/AdvReac Type Severity Reaction Status Date / Time lorazepam [From Ativan] Allergy ADR-Agitate Verified 12/10/23 20:25 d Review of Systems 2 General: Reports: 10 or more systems reviewed and unremarkable except in HPI and below PFSH ED 2 PFSH: Medical History No pertinent family history Surgical History Hx of inguinal hernia repair 05/26/23 Dr. Richardson open left inguinal hernia repair with mesh No pertinent past surgical history Family History Father Colon cancer Unknown Colon cancer Cousin- stage 4 Unknown Lung cancer Family/Other Diabetic acidosis, type II Uncle Social History Smoking and tobacco/nicotine status: current every day tobacco/nicotine user cigarettes Alcohol intake: never Substance/Drug Use: current Physical Exam 2 Const: COMMON NORMALS: no acute distress, average body habitus, patient oriented x3, no limitations, healthy appearing, alert and well nourished HENMT: COMMON NORMALS: normocephalic, atraumatic, hearing grossly normal bilaterally, external ears normal, Normal external nose present and moist oral mucous membranes HEAD & SCALP: normocephalic and atraumatic NOSE: Normal external nose present EXTERNAL EAR: Yes external ears normal Neck/C-Spine: COMMON NORMALS: no JVD Chest: COMMONS NORMALS: normal inspection of the chest and normal palpation of entire chest wall Resp: COMMON NORMALS: normal respiratory effort, No retractions, No use of accessory muscles and clear to auscultation bilaterally AUSCULTATION: clear to auscultation bilaterally Cardio: COMMON NORMALS: no JVD, regular rate, regular rhythm, S1 normal heart sound present, S2 normal heart sound present, No gallops present (Cardio), No clicks present (Cardio), No murmurs present (Cardio) and No rub (Cardio) R ATE: regular rate RHYTHM: regular rhythm HEART SOUNDS: S1 normal heart sound present and S2 normal heart sound present GI: COMMON NORMALS: Normal to inspection, nondistended, normoactive bowel sounds present, Soft to palpation, non-tender, No hepatosplenomegaly present and no masses PALPATION: Yes Soft to palpation and Yes No hepatosplenomegaly present Extremity: NARRATIVE EXTREMITY EXAM: Left foot mildly red mildly swollen mildly tender to palpate diffusely but worse on the lateral side. No obvious crepitus deformity Neuro: COMMON NORMALS: patient oriented x3 SENSORIUM/ORIENTATION: Yes alert Course 2 Vital Signs: Vital signs: Vital Signs Temperature 98.6 F 08/24/24 20:46 Pulse Rate 78 08/24/24 21:15 Respiratory Rate 18 08/24/24 21:15 Blood Pressure 127/84 08/24/24 21:15 Pulse Oximetry 94 08/24/24 21:15 Oxygen Delivery Me thod Room Air 08/24/24 21:15 MDM - Extremity (Nontraumatic) Medical Decision Making Lab work included CBC CMP uric acid was obtained as well as a foot x-ray all of which was negative. Patient was informed of these results. We will discharge patient on meloxicam. Medical Records I reviewed the patient's medical records. Lab Data I reviewed the patient's lab results. 08/24/24 21:17 08/24/24 21:17 Radiology Impressions Foot X-Ray 08/24/24 21:04 IMPRESSION: No acute fracture or dislocation. Laboratory Results WBC 6.31 10^3/uL (3.29-11.43) 08/24/24 21:17 RBC 4.71 10^6/uL (3.85-5.65) 08/24/24 21:17 Hgb 14.10 g/dL (11.27-16.99) 08/24/24 21:17 Hct 41.9 % (37-53) 08/24/24 21:17 MCV 89.0 fl (82-101) 08/24/24 21:17 MCH 29.9 pg (27-33) 08/24/24 21:17 MCHC 33.7 g/dL (30-55) 08/24/24 21:17 RDW 13.0 % (12.1-15.1) 08/24/24 21:17 Plt Count 149 10^3/cmm (157-399) L 08/24/24 21:17 MPV 11.0 fL (7.4-10.4) H 08/24/24 21:17 Neut % (Auto) 58.5 % 08/24/24 21:17 Lymph % (Auto) 27.4 % 08/24/24 21:17 [place] % (Auto) 8.7 % 08/24/24 21:17 Eos % (Auto) 4.6 % 08/24/24 21:17 Baso % (Auto) 0.6 % 08/24/24 21:17 Neut # (Auto) 3.69 10^3/uL (1.8-7.7) 08/24/24 21:17 Lymph # (Auto) 1.7 10^3/uL (0.8-4.8) 08/24/24 21:17 [place] # (Auto) 0.6 10^3/uL (0.2-0.9) 08/24/24 21:17 Eos # (Auto) 0.3 10^3/uL (0.0-0.8) 08/24/24 21:17 Baso # (Auto) 0.0 10^3/uL (0.0-0.1) 08/24/24 21:17 Nucleated RBC % (auto) 0 % 08/24/24 21:17 Nucleated RBCs # 0.0 /100WBC 08/24/24 21:17 Sodium 137 mmol/L (136-145) 08/24/24 21:17 Potassium 3.5 mmol/L (3.5-5.1) 08/24/24 21:17 Chloride 103 mmol/L (98-107) 08/24/24 21:17 Carbon Dioxide 22 mmol/L (22-29) 08/24/24 21:17 Anion Gap 15.5 (5-19) 08/24/24 21:17 BUN 12 mg/dL (6-20) 08/24/24 21:17 Creatinine 0.7 mg/dL (0.7-1.2) 08/24/24 21:17 GFR Calculation 120.4 mL/min (90-130) 08/24/24 21:17 Glucose 131 mg/dL (65-115) H 08/24/24 21:17 Calculated Osmolality 286 mOsm/kg (285-295) 08/24/24 21:17 Uric Acid 4.4 mg/dL (3.4-7.0) 08/24/24 21:17 Calcium 8.8 mg/dL (8.5-10.5) 08/24/24 21:17 Total Bilirubin 0.2 mg/dL (0.15-1.2) 08/24/24 21:17 AST 16 U/L (0-40) 08/24/24 21:17 ALT 14 U/L (0-41) 08/24/24 21:17 Alkaline Phosphatase 82 U/L (40-130) 08/24/24 21:17 Total Protein 6.4 g/dL (6.6-8.7) L 08/24/24 21:17 Albumin 4.2 g/dL (3.5-5.2) 08/24/24 21:17 Globulin 2.2 g/dL (1.3-4.6) 08/24/24 21:17 All radiology interpretation(s) finalized by discharge Discharge Plan Discharge Patient Disposition: Home Clinical Impression: Acute pain of left foot Condition: Stable Prescriptions: New meloxicam 7.5 mg tablet 7.5 mg PO .Twice daily Qty: 14 0RF No Action meloxicam 15 mg tablet 15 mg PO DAILY PRN (Reason: pain (scale score 7-10)) Qty: 30 0RF venlafaxine 75 mg capsule,extended release 24hr PO gabapentin 300 mg capsule 300 mg PO TID Qty: 90 5RF docusate sodium [Colace] 100 mg capsule 100 mg PO DAILY 30 Days Qty: 30 0RF azelastine 137 mcg (0.1 %) aerosol,spray 2 spray INTRANASAL BID PRN (Reason: Allergy Symptoms) levocetirizine 5 mg tablet 5 mg PO DAILY PRN (Reason: Allergy Symptoms) Adult Multivitamin Gummies 200 mcg Tablet,Chewable 1 tab PO DAILY Discharge Orders: Discharge ED (Routine); Ordered 08/24/24 Ordered By: Ever Ortiz Referrals: Larry Benjamin MD [Primary Care Provider] - 1 week Patient Instructions: Musculoskeletal Pain (ED) Activity Restrictions/Additional Instructions: Thank you for choosing [facility] for your healthcare needs today. Please realize that you were seen in the emergency department and that we are providing you with an emergency medical screening exam and this may not be a complete and all exclusive of all testing and/or medical workup we may need to determine your element or severity of your illness. It is very important that you follow-up as instructed with your primary care provider or specialist for the additional evaluation and to discuss your medical treatment plan. You may return to the emergency department should you have concerns or if your condition changes or worsens in any way. Coding Level of Care Code ED Curing Pickling Packer for Paul Alvarez
[2024-08-24 23:36] VITALS: BP 142/84; PULSE 75; RESP 16; O2SAT 95
== END 2024-08-24 23:18 | disposition home or self-care (01) ==
PROVIDERS: Emergency Provider Emergency Medicine; PCP Family Medicine
DX: M79.672 Pain in left foot (principal); F17.210 Nicotine dependence, cigarettes, uncomplicated
CPT/HCPCS: 36415; 73630; 80053; 84550; 85025; 99283

== ENCOUNTER 2024-11-02 09:15 | Outpatient (CLI) | payer MEDICAID, SELFPAY ==
--- NOTE | 2024-11-02 09:20 | XR_ITS ---
WS: [id number] XR wrist RT min 3V* [id number] REASON FOR EXAM: PAIN IN RIGHT WRIST FINDINGS: No acute fracture identified. Significant narrowing of the radial scaphoid joint space with moderate subchondral sclerosis and mild osteophytosis. Significant separation of the scaphoid and lunate carpal bones with mild ventral rota tion of the lunate on the lateral view. XR/XR wrist RT min 3V* [id number] IMPRESSION: Presumed complete tear of the scapholunate ligament unknown chronicity as above . 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
== END 2024-11-02 09:16 | disposition home or self-care (01) ==
LOC: RAD 09:17
PROVIDERS: PCP Family Medicine; Visit Provider Family Medicine
DX: M19.031 Primary osteoarthritis, right wrist (principal); R93.6 Abnormal findings on diagnostic imaging of limbs
CPT/HCPCS: 73110

== ENCOUNTER 2025-03-20 12:33 | Emergency (ER) | payer MEDICAID, SELFPAY ==
[2025-03-20 12:40] VITALS: BP 135/86; PULSE 67; TEMP 36.6; O2SAT 97; BMI 25.6
--- NOTE | 2025-03-20 12:46 | ED_ITS ---
HPI - Head Injury General: Chief complaint: Head Injury Stated complaint: head lac Time Seen by Provider: 03/20/25 12:46 Related Data Home Medications ?Medication ?Instructions ?Recorded ?Confirmed azelastine 137 mcg (0.1 %) nasal 2 spray intranasal BI D PRN Allergy 05/07/23 11/12/23 spray Symptoms levocetirizine 5 mg tablet 5 mg PO DAILY PRN Allergy S ymptoms 05/07/23 11/12/23 multivitamin with minerals-folic 1 tab PO DAILY 11/12/23 acid 200 mcg chewable tablet (Adult Multivitamin Gummies) venlafaxine 75 mg capsule,extended mg PO 11/12/2310/19 release 24 hr Previous Rx's ?Medication ?Instructions ?Recorded docusate sodium 100 mg capsule 100 mg PO DAILY 30 days #30 caps 05/27/23 (Colace) gabapentin 300 mg capsule 300 mg PO TID #90 caps 07/22 meloxicam 15 mg tablet 15 mg PO DAILY PRN pain (sca le 10/14/23 score 7-10) #30 tabs meloxicam 7.5 mg tablet 7.5 mg PO .Twice daily #14 t abs 08/24/24 Allergies Allergy/AdvReac Type Severity Reaction Status Date / Time lorazepam (From Ativan) Allergy ADR-Agitate Verified 03/20/25 12:45 d [facility] ED PFSH: Medical History No pertinent family history Surgical History Hx of inguinal hernia repair 05/26/23 Dr. Richardson open left inguinal hernia repair with mesh No pertinent past surgical history Family History Father Colon cancer Unknown Colon cancer Cousin- stage 4 Unknown Lung cancer Family/Other Diabetic acidosis, type II Uncle Social History Smoking and tobacco/nicotine status: current every day tobacco/nicotine user cigarettes Alcohol intake: never Substance/Drug Use: current Course Vital Signs: Vital signs: Vital Signs Temperature 97.8 F 03/20/25 12:40 Pulse Rate 67 03/20/25 12:40 Blood Pressure 135/86 03/20/25 12:40 Pulse Oximetry 97 03/20/25 12:40 Oxygen Delivery Me thod Room Air 03/20/25 12:40 Discharge Plan Discharge Condition: Stable Prescriptions: No Action meloxicam 15 mg tablet 15 mg PO DAILY PRN (Reason: pain (scale score 7-10)) Qty: 30 0RF venlafaxine 75 mg capsule,extended release 24hr PO gabapentin 300 mg capsule 300 mg PO TID Qty: 90 5RF docusate sodium [Colace] 100 mg capsule 100 mg PO DAILY 30 Days Qty: 30 0RF azelastine 137 mcg (0.1 %) aerosol,spray 2 spray INTRANASAL BID PRN (Reason: Allergy Symptoms) levocetirizine 5 mg tablet 5 mg PO DAILY PRN (Reason: Allergy Symptoms) Adult Multivitamin Gummies 200 mcg Tablet,Chewable 1 tab PO DAILY meloxicam 7.5 mg tablet 7.5 mg PO .Twice daily Qty: 14 0RF Referrals: Larry Benjamin MD [Primary Care Provider, Family Practice] Print Language: Stateless Coding Level of Care Code ED Duplicator Punch Set Up Operator for Paul Alvarez
--- NOTE | 2025-03-20 13:10 | W.ED.HEATRA ---
HPI - Head Injury General: Chief complaint: Head Injury Stated complaint: head lac Time Seen by Provider: 03/20/25 12:46 History of Present Illness: 49-year-old male presents to the emergency room from work. He was moving some equipment and he stumbled backwards and hit a metal rack with the back of his head he has a 2 inch laceration. Patient is uncertain of his last tetanus shot. No loss consciousness no nausea or vomiting moderate headache Associated symptoms: Deny neck pain Related Data Home Medications ?Medication ?Instructions ?Recorded ?Confirmed azelastine 137 mcg (0.1 %) nasal 2 spray intranasal BID PRN Allergy 05/07/23 11/12/23 spray Symptoms levocetirizine 5 mg tablet 5 mg PO DAILY PRN Allergy Symptoms 05/07/23 11/12/23 multivitamin with minerals-folic 1 tab PO DAILY 05/07/23 11/12/23 acid 200 mcg chewable tablet (Adult Multivitamin Gummies) venlafaxine 75 mg capsule,extended mg PO 11/12/23 11/12/23 release 24 hr Previous Rx's ?Medication ?Instructions ?Recorded docusate sodium 100 mg capsule 100 mg PO DAILY 30 days #30 caps 05/27/23 (Colace) gabapentin 300 mg capsule 300 mg PO TID #90 caps 07/22/23 meloxicam 15 mg tablet 15 mg PO DAILY PRN pain (scale 10/14/23 score 7-10) #30 tabs meloxicam 7.5 mg tablet 7.5 mg PO .Twice daily #14 tabs 08/24/24 Allergies Allergy/AdvReac Type Severity Reaction Status Date / Time lorazepam (From Ativan) Allergy ADR-Agitate Verified 03/20/25 12:45 d Review of Systems Const: Denies: fever(s) or chills Card: Denies: chest pain Resp: Denies: dyspnea GI: Denies: abdominal pain Musc: Denies: neck pain or back pain PFS ED PFSH: Medical History No pertinent family history Surgical History Hx of inguinal hernia repair 05/26/23 Dr. Richardson open left inguinal hernia repair with mesh No pertinent past surgical history Family History Father Colon cancer Unknown Colon cancer Cousin- stage 4 Unknown Lung cancer Family/Other Diabetic acidosis, type II Uncle Social History Smoking and tobacco/nicotine status: current every day tobacco/nicotine user cigarettes Alcohol intake: never Substance/Drug Use: current Physical Exam Const: COMMON NORMALS: no acute distress GENERAL APPEARANCE: cooperative ORIENTATION/CONSCIOUSNESS: Yes awake, Yes oriented to person, Yes oriented to place and Yes oriented to time HENMT: COMMON NORMALS: normocephalic and hearing grossly normal bilaterally HEAD & SCALP: normocephalic Neck/C-Spine: OTHER: The open with palpation along the cervical spine. No step-offs no crepitus. Resp: COMMON NORMALS: normal respiratory effort and No retractions Neuro: SENSORIUM/ORIENTATION: Yes oriented to person, Yes oriented to place and Yes oriented to time Skin: COMMON NORMALS: no rashes or lesions noted GENERAL SKIN EXAM: no rashes or lesions noted Course Vital Signs: Vital signs: Vital Signs Temperature 97.8 F 03/20/25 12:40 Pulse Rate 67 03/20/25 12:40 Blood Pressure 135/86 03/20/25 12:40 Pulse Oximetry 97 03/20/25 12:40 Oxygen Delivery Me thod Room Air 03/20/25 12:40 MDM - Head Injury Medcial Decision Making Wound cleansed there is some hair embedded in the wound this was carefully teased out wound was then irrigated. Discussed patient option of placing pranav or using lidocaine with the caveat that the lidocaine does have significant discomfort when applied he opted for just to apply the pranav. 3 pranav applied patient tolerated well wound care instructions given. Tetanus updated Medical Records I reviewed the patient's medical records. Lab Data I reviewed the patient's lab results. No radiology studies performed this visit Discharge Plan Discharge Patient Disposition: Home Clinical Impression: Scalp laceration Qualifiers: Encounter type: initial encounter Qualified Code(s): S01.01XA - Laceration without foreign body of scalp, initial encounter Condition: Stable Prescriptions: No Action meloxicam 15 mg tablet 15 mg PO DAILY PRN (Reason: pain (scale score 7-10)) Qty: 30 0RF venlafaxine 75 mg capsule,extended release 24hr PO gabapentin 300 mg capsule 300 mg PO TID Qty: 90 5RF docusate sodium [Colace] 100 mg capsule 100 mg PO DAILY 30 Days Qty: 30 0RF azelastine 137 mcg (0.1 %) aerosol,spray 2 spray INTRANASAL BID PRN (Reason: Allergy Symptoms) levocetirizine 5 mg tablet 5 mg PO DAILY PRN (Reason: Allergy Symptoms) Adult Multivitamin Gummies 200 mcg Tablet,Chewable 1 tab PO DAILY meloxicam 7.5 mg tablet 7.5 mg PO .Twice daily Qty: 14 0RF Discharge Orders: Discharge ED (Routine); Ordered 03/20/25 Ordered By: Sohan Foster Referrals: Larry Benjamin MD [Primary Care Provider, Family Practice] Patient Instructions: Opioid Safety, Pain Management Activity Restrictions/Additional Instructions: Thank you for choosing [facility] for your healthcare needs today. It is very important that you follow up as instructed or that you return to the Emergency Department should you have concerns or if your condition changes or worsens in any way. You were seen in the emergency room after having a laceration to the head. The laceration was cleaned and stapled. Apply topical antibiotic ointment to the wound once daily. [place] can be removed in 7 to 10 days Print Language: Barbadian Coding Level of Care Code ED Room Maid for Paul Alvarez
[2025-03-20] MEDS: HYDROcodone-acetaminophen 5-325 mg Tablet 1 TAB PO (13:14)
[2025-03-20] MEDS: tetanus-dipt-pertussis 0.5 mL SDV IM (13:16)
[2025-03-20 13:35] VITALS: BP 139/95; PULSE 68; O2SAT 96
== END 2025-03-20 13:35 | disposition home or self-care (01) ==
PROVIDERS: Emergency Provider Family Medicine; PCP Family Medicine
DX: S01.01XA Laceration without foreign body of scalp, initial encounter (principal); W22.8XXA Striking against or struck by other objects, initial encounter; F17.210 Nicotine dependence, cigarettes, uncomplicated
CPT/HCPCS: 90471; 90715; 99283; J9999

== ENCOUNTER 2025-08-28 11:47 | Day surgery (SDC) | payer MEDICAID, SELFPAY ==
[2025-08-28 12:12] VITALS: BP 121/75; PULSE 67; RESP 18; TEMP 36.6; O2SAT 94; BMI 25.6
--- NOTE | 2025-08-28 12:33 | P.HP_ITS ---
Same Day Surgery H&P Indication for Procedure/HPI DATE OF PROCEDURE: August 28, 2025 CHIEF COMPLAINT/INDICATIONFOR SURGICAL PROCEDURE: Screening colonoscopy and GERD PREOP DIAGNOSIS: Screening colonoscopy and GERD PLANNED PROCEDURE: Operation Date: 08/28/25 13:30 Proposed Procedures p EGD EGD with Biopsy [id number] G0105 Z12.11 K21.9(Not Applicable) - Suraj Donis MD s Colonoscopy(Not Applicable) - Suraj Donis MD Medications/Allergies* Home Medications ?Medication ?Instructions ?Recorded ?Confirmed ?Type levocetirizine 5 mg tablet 5 mg PO DAILY PRN Allergy S ymptoms 05/07/23 08/28/25 History Allergies/Adverse Reactions Allergy/AdvReac Type Severity Reaction Status Date / Time lorazepam (From Ativan) Allergy ADR-Agitate Verified 08/28/25 12:11 d Current Medications: Generic Name Dose Route Start Last Admin Trade Name Freq PRN Reason Stop Dose Admin Sodium Chloride 1,000 mls @ 15 mls/hr 08/28/25 12:01 08/28/25 12:20 Sodium Chloride 0.9% IV 08/29/25 12:00 15 mls/hr .Q24H PRN Administration COLONOSCOPY FLUIDS Pertinent History/Comorbid Conditions* Medical History (Updated 03/28/25 @ 00:00 by ADDISON Joe) No pertinent family history Surgical History (Updated 10/14/23 @ 14:13 by Adeel Richardson MD) Hx of inguinal hernia repair 05/26/23 Dr. Richardson open left inguinal hernia repair with mesh No pertinent past surgical history Family History (Updated 11/12/23 @ 08:09 by REINALDO Blas) Father Unknown Colon cancer Father Unknown Cousin- stage 4 Diabetic acidosis, type II Family/Other Uncle Lung cancer Unknown Social History Smoking and tobacco/nicotine status: former use of tobacco/nicotine Alcohol intake: never Substance/Drug Use: current Pertinent Exam Findings alert, oriented x 3, clear to auscultation bilaterally, regular rate & rhythm and procedure specific exam findings Abdomen soft nontender nondistended Recommendations Risks and benefits of procedure reviewed and Patient/family agree to proceed Surgery/Procedure today Other Plans: I have explained the risks and benefits of a diagnostic EGD with biopsy and the patient agrees to proceed. I have explained the risks and benefits of a screening colonoscopy and the patient agrees to proceed. Patient is average for colon cancer. Patient understands that hemoccult is an alternative and still decides to proceed with colonoscopy. Had an extensive discussion with the patient. Answered all questions. Patient understands that the risks include a 1% risk of iatrogenic perforation and risk of aspiration. Coding Level of Care Code Acute Code for Chg Fwd
--- NOTE | 2025-08-28 12:38 | P.ANESASSM_ITS ---
Pre-Anesthetic Assessment Height/Weight: Height 1.91 m Weight 92.986 kg Temp Pulse Resp BP Pulse Ox O2 Del Method 97.8 F 67 18 121/75 94 Room Air 08/28/25 12:12 08/28/25 12:12 08/28/25 12:12 08/28/25 12:12 08/28/25 12:12 08/28/25 12:12 Preop Diagnosis: Screening colonoscopy and GERD Operation Date: 08/28/25 13:30 Proposed Procedures p EGD EGD with Biopsy [id number] G0105 Z12.11 K21.9(Not Applicable) - Suraj Donis MD s Colonoscopy(Not Applicable) - Suraj Donis MD Was Beta Daphnie taken within 24 hours: N/A Was Clonidine taken within 24 hours: N/A Last intake: Intake Last Liquid Date 08/27/25 Last Liquid Time 21:00 Last Solid Date 08/26/25 Last Solid Time 18:00 Social Alcohol and Tobacco Exam alert, oriented x 3, clear to auscultation bilaterally and regular rate & rhythm Airway Submandibular: within normal limits Cervical ROM: within normal limits Mallampati: Class I Dentition: chipped and other (missing teeth) History/ROS No significant history except as noted Pulmonary None reported CV/HEM None reported None reported Hepatic None reported GI None reported Metabolic None reported Musc/skel None reported Neuropsych Anxiety Anesthetic Plan ASA status: 2 Anesthesia: Anesthesia Evaluation, General and MAC Risk of > 500 ml blood loss (7ml/kg in children): No Medications/Allergies Home Medications ?Medication ?Instructions ?Recorded ?Confirmed ?Last Taken ?Type levocetirizine 5 mg tablet 5 mg PO DAILY PRN Allergy S ymptoms 05/07/23 08/28/25 08/27/25 History Allergies Allergy/AdvReac Type Severity Reaction Status Date / Time lorazepam (From Ativan) Allergy ADR-Agitate Verified 08/28/25 12:11 d Current Medications Generic Name Dose Route Start Last Admin Trade Name Freq PRN Reason Stop Dose Admin Sodium Chloride 1,000 mls @ 15 mls/hr 08/28/25 12:01 08/28/25 12:20 Sodium Chloride 0.9% IV 08/29/25 12:00 15 mls/hr .Q24H PRN Administration COLONOSCOPY FLUIDS PFSH Anesthesia Medical History No pertinent family history Surgical History Hx of inguinal hernia repair 05/26/23 Dr. Richardson open left inguinal hernia repair with mesh No pertinent past surgical history Family History Father Colon cancer Unknown Colon cancer Cousin- stage 4 Unknown Lung cancer Family/Other Diabetic acidosis, type II Uncle Social History Smoking and tobacco/nicotine status: former use of tobacco/nicotine Alcohol intake: never Substance/Drug Use: current
--- NOTE | 2025-08-28 12:47 | W.PM.OPSUD ---
Surgery/Procedure H&P Update DATE OF PROCEDURE: August 28, 2025 DATE H&P PERFORMED: 07/26/25 H&P UPDATE INFORMATION: I have reviewed H&P completed within last 30 days, I have examined patient prior to procedure, No changes to prior documentation and Risks and benefits of the procedure reviewed PREOP DIAGNOSIS: Screening colonoscopy and GERD PLANNED PROCEDURE: Operation Date: 08/28/25 13:30 Proposed Procedures p EGD EGD with Biopsy [id number] G0105 Z12.11 K21.9(Not Applicable) - Suraj Donis MD s Colonoscopy(Not Applicable) - Suraj Donis MD
[2025-08-28 13:24] VITALS: BP 145/104; PULSE 62; RESP 16; TEMP 36.1; O2SAT 97
[2025-08-28 13:37] VITALS: BP 141/85; PULSE 67; RESP 18; O2SAT 97
--- NOTE | 2025-08-28 13:55 | ANE.PACU2 ---
Inpatient post-anesthesia follow up: Airway intact: Yes Vital signs: Temperature 97 F Pulse Rate 67 Respiratory Rate 18 Blood Pressure 141/85 Pulse Oximetry 97 Oxygen Delivery Me thod Room Air Oxygen Flow Rate Fraction of Inspir ed Oxygen Hydration adequate: Yes Nausea and vomiting: No Pain level: 1 Mental status: Baseline
--- NOTE | 2025-08-28 14:16 | PC.NURSE ---
pharmacy took pt med to pt car in surgery parking lot.
== END 2025-08-28 13:55 | disposition home or self-care (01) ==
PROVIDERS: PCP Family Medicine; Visit Provider Student in an Organized Health Care Education/Training Program
PROC: 0DJ08ZZ Inspection of Upper Intestinal Tract, Via Natural or Artificial Opening Endoscopic (ICD-10-PCS; principal; 2025-08-28 13:30)
PROC: 0DJD8ZZ Inspection of Lower Intestinal Tract, Via Natural or Artificial Opening Endoscopic (ICD-10-PCS; CPT 45378; 2025-08-28 13:30)
DX: K92.1 Melena (principal); D12.2 Benign neoplasm of ascending colon; D12.5 Benign neoplasm of sigmoid colon; K21.9 Gastro-esophageal reflux disease without esophagitis; K29.70 Gastritis, unspecified, without bleeding; Z87.891 Personal history of nicotine dependence; F41.9 Anxiety disorder, unspecified; Z80.0 Family history of malignant neoplasm of digestive organs; Z80.1 Family history of malignant neoplasm of trachea, bronchus and lung
CPT/HCPCS: 43239; 45380; 45385; 88305; 88342; J2704; J7030